=== PATIENT | male | born 1985 ===

== ENCOUNTER 2019-04-15 06:51 | Emergency (ER) | payer SELFPAY ==
[2019-04-15] MEDS ORDERED: Morphine 4 MG/ML VIAL (1 ml) 4 MG/ML VIAL IV ONE ×2 (07:12→07:52)
--- NOTE | 2019-04-15 07:23 | ED ---
Upper Extremity Pain - HPI Summary HPI Summary: Pt. is a 33 y.o male who presents to the ER for left shoulder injury. Pt. 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 Pt. states he was walking down a ramp this morning at work when he slipped and grabbed onto railing with left hand. Pt. states he then felt a pop in left shoulder. Pt. denies head injury. Sxs are mild in severity. Moving left shoulder makes sxs worse. Nothing makes sxs better. - History of Current Complaint Chief Complaint: EDFall Stated Complaint: L SHOULDER INJURY PER PT Time Seen by Provider: 04/15/19 07:09 Hx Obtained From: Patient - Allergies/Home Medications Allergies/Adverse Reactions: Allergies Allergy/AdvReac Type Severity Reaction Status Date / Time No Known Allergies Allergy Verified 04/15/19 07:25 Home Medications: Home Medications NK [No Home Medications Reported] 04/15/19 [History Confirmed 04/15/19] PMH/Surg Hx/FS Hx/Imm Hx Previously Healthy: Yes Infectious Disease History: No Infectious Disease History: Denies: Traveled Outside the [place] in Last 30 Days - Family History Known Family History: Positive: Non-Contributory - Social History Occupation: Employed Full-time Lives: With Family Review of Systems Positive: Other - Left shoulder injury Skin: Negative Neurological: Negative Negative: Weakness, Paresthesia, Numbness All Other Systems Reviewed And Are Negative: Yes Physical Exam Triage Information Reviewed: Yes Vital Signs On Initial Exam: Initial Vitals Temp Pulse Resp BP Pulse Ox 98.0 F 82 24 154/104 98 04/15/19 06:52 04/15/19 06:52 04/15/19 06:52 04/15/19 06:52 04/15/19 06:52 Vital Signs Reviewed: Yes Appearance: Positive: Pain Distress - Pt. sitting up in bed holding left arm. Appears in pain. Coworker present. Skin: Positive: Warm, Dry Head/Face: Positive: Normal Head/Face Inspection Eyes: Positive: Normal, EOMI Neck: Positive: Supple Musculoskeletal: Positive: Other - Obvious deformity to left shoulder. No breaks in skin. Good radial pulse. Neurological: Positive: Normal, CN Intact II-III Psychiatric: Positive: Affect/Mood Appropriate Procedures - Sedation Patient Received Moderate/Deep Sedation with Procedure: No - Joint Reduction Left Joint Reduction Site: shoulder (L) Conscious Sedation: No Reduction Attempts: 1 Pre-Procedure NV Exam: Yes Post Joint Reduction Film: joint reduced Diagnostics - Vital Signs Vital Signs Temp Pulse Resp BP Pulse Ox 04/15/19 06:52 98.0 F 82 24 154/104 98 - Laboratory Lab Statement: Any lab studies that have been ordered have been reviewed, and results considered in the medical decision making process. Course/Dx - Course Course Of Treatment: Pt. with isoloated left shoulder injury. Xray shows anterior dislocation. Pt. was given IV pain medication and left shoulder was easily reduced with external rotation. Immobilizer placed. Post reduction Xray per radiology: IMPRESSION: 1. STATUS POST EXTERNAL REDUCTION. THE BONES ARE IN NORMAL ALIGNMENT. 2. PROBABLE HILL-SACHS FRACTURE. THE PREVIOUSLY NOTED SUSPECTED B[place] FRACTURE IS NOT. SEEN ON THIS IMAGE. Pt. dc with immobilizer to f.u with ortho. Tylenol or Motrin for pain as directed. Pt. understands and agrees with plan. - Diagnoses Differential Diagnosis/HQI/PQRI: Positive: Fracture (Closed), Strain, Sprain Provider Diagnoses: Shoulder dislocation Discharge ED - Sign-Out/Discharge Documenting (check all that apply): Patient Departure - Discharge Plan Condition: Improved Disposition: HOME Patient Education Materials: Shoulder Dislocation (ED) Referrals: Natalie Melissa MD [Medical Doctor] - Additional Instructions: Call orthopedics today to schedule a follow up appointment Keep sling in place Tylenol or Motrin for pain as directed Return to ER if symptoms change or worsen - Billing Disposition and Condition Condition: IMPROVED Disposition: Home - Attestation Statements Provider Attestation: pt seen by midlevel provider independently, based on their assessment, it was not necessary to present the case to me but I was available for consultation. I did not form a physician-patient relationship with the patient. The chart however, has been reviewed. am signing this note strictly in an administrative capacity.
[2019-04-15 09:13] VITALS: BP 129/91
== END 2019-04-15 09:22 | disposition home or self-care (01) ==
LOC: ED 06:51
DX: S43.005A Unspecified dislocation of left shoulder joint, initial encounter (principal); X50.9XXA Other and unspecified overexertion or strenuous movements or postures, initial encounter; Y92.89 Other specified places as the place of occurrence of the external cause; Y99.0 Civilian activity done for income or pay
CPT/HCPCS: 23650; 96374; 96376; 99283; J2270